=== PATIENT | female | born 1990 | race Two or more races ===

== ENCOUNTER 2016-08-27 05:48 | Inpatient (IN) | payer MEDICAID ==
[~2016-08-27] VITALS: Ht 160 cm; Wt 79.0 kg
--- NOTE | ~2016-08-27 | OR ---
[facility] 26 [address] ROOM: [place] [id number] LOCATION: [facility] ADMIT DATE: 08/27/2016 OR/Procedure Report DISCHARGE DATE: FAMILY PHYSICIAN: PHYSICIAN, NO ATTENDING PHYSICIAN: Les Treviño SURGEON: Les Treviño MD [employer] SANDER: Dr. Trish Sagastume. DATE OF PROCEDURE: 08/27/2016 PREOPERATIVE DIAGNOSIS: Prior section at term. POSTOPERATIVE DIAGNOSIS: Prior section at term. PROCEDURE: Repeat low transverse section. ANESTHESIA: Spinal. ESTIMATED BLOOD LOSS: 600 mL. CLINICAL INDICATION: Romulo Morales is a 26-year-old , female, 2, para 1, at 39 weeks' gestational age. She has had a prior section necessitating a repeat section. She is 39 weeks' gestational age. FINDINGS: Delivery of a viable 10-pound 7-ounce male infant, scores of 8 at one minute and 8 at five minutes. umbilical arterial cord blood gas is pending at the time of the dictation. TECHNIQUE OF PROCEDURE: The patient was taken to the operating room, given spinal anesthesia with good results, placed in a supine position with a right hip roll, prepped and draped in the usual fashion. Pfannenstiel technique prior. Vertical midline skin incision was excised sharply, subcutaneous tissue dissected sharply, and undermined. Vertical midline fascial incision performed. The rectus muscles and peritoneum were incised vertically in the midline. Bladder flap was created. Myometrium incised with a scalpel. Endometrial cavity was entered bluntly. Uterine incision was performed bluntly. At this point in time, there was rapid and easy delivery of a viable 10-pound 7-ounce male in a vertex presentation. The umbilical cord was doubly clamped, the intervening segment was cut, and it was handed off to the awaiting nursing services. umbilical, arterial cord blood, and venous cord blood were obtained for blood gas analysis and routine studies respectively. Placenta delivered spontaneously intact with 3 vessels. Exploration of the uterine cavity noted no residual placental or amniotic membranes. Uterine incision was closed with a running continually locking stitch of 0 chromic suture followed by a second imbricating layer consisting PATIENT'S NAME: ROMULO [facility]NANDEZSUS [facility] AGE: 26 Y [address] ROOM: [place] [id number] LOCATION: [facility] ADMIT DATE: 08/27/2016 OR/Procedure Report DISCHARGE DATE: FAMILY PHYSICIAN: PHYSICIAN, LONI ATTENDING PHYSICIAN: Les Treviño of running continuous stitch of 0 chromic suture. Good hemostasis was obtained. Bladder flap was closed with a running continuous stitch of 2-0 Vicryl suture. Abdomen was inspected. Any blood or blood clots were retrieved. Tubes and ovaries were normal bilaterally. Abdominal peritoneum was closed with a running continuous stitch of 2-0 Vicryl suture. Vaginal incision was closed with a running continuous stitch of 0 Vicryl suture. There was a large amount of redundant vaginal tissue and as such, a second imbricating layer was placed using a running continuous stitch of 0 Vicryl suture. Submucosa was then reapproximated using a series of interrupted stitches of 2-0 Vicryl suture. Skin was closed with running continuous subcuticular stitch of 4-0 Vicryl suture. Sponge, needle, and instrument counts were correct. The patient tolerated the procedure well and was taken to the recovery room in good condition. MD ROCAEL JAUREGUI/modl /[id number] d: 08/27/167 t: 08/31/16 0733, OPERATIVE SUMMARY
[2016-08-27 06:45] LABS: BASOPHIL % 0.3 %; EOSINOPHIL # 0.2 K/uL (0.0-0.5); EOSINOPHIL % 2.6 %; HEMATOCRIT 34.7 % (33.0-46.0); HEMOGLOBIN 12.3 g/dL (11.0-15.0); IMMATURE GRANULOCYTE # 0.1 K/uL (0.0-0.3); IMMATURE GRANULOCYTE % 0.7 %; LYMPHOCYTE % 21.8 %; MCH 32.5 pg (27.0-34.0); MCHC 35.4 gm/dL (32.0-36.5); MCV 91.8 fl (83.0-98.0); MONOCYTE # 0.4 K/uL (0.0-1.0); MONOCYTE % 4.8 %; MPV 10.2 fl (9.4-12.4); NEUTROPHIL # (ANC) 6.5 K/uL (1.8-7.8); NEUTROPHIL % 69.8 %; NRBC % 0.2 /100WBC (0-0.00); PLATELET COUNT 250 K/uL (150-450); RBC 3.78 M/uL (3.50-5.00); RDW-CV 13.2 % (11.9-14.6); WBC 9.2 K/uL (4.0-11.0)
[2016-08-27] MEDS ORDERED: PRENATAL 1+1)(P1 TAB PO (07:18)
[2016-08-27 08:24] LABS: BICARBONATE 28.2 mmol/L (18.0-23.0); PCO2 65 mmHg (35-45); PO2 22 mmHg (80-90)
[2016-08-28 09:07] LABS: BASOPHIL % 0.3 %; EOSINOPHIL # 0.2 K/uL (0.0-0.5); EOSINOPHIL % 1.3 %; HEMATOCRIT 31.2 % (33.0-46.0); HEMOGLOBIN 10.8 g/dL (11.0-15.0); IMMATURE GRANULOCYTE # 0.1 K/uL (0.0-0.3); IMMATURE GRANULOCYTE % 0.4 %; LYMPHOCYTE # 1.3 K/uL (0.8-4.0); LYMPHOCYTE % 10.6 %; MCH 32.5 pg (27.0-34.0); MCHC 34.6 gm/dL (32.0-36.5); MONOCYTE # 0.5 K/uL (0.0-1.0); MONOCYTE % 3.6 %; MPV 9.3 fl (9.4-12.4); NEUTROPHIL # (ANC) 10.6 K/uL (1.8-7.8); NEUTROPHIL % 83.8 %; NRBC % 0 /100WBC (0-0.00); PLATELET COUNT 217 K/uL (150-450); RBC 3.32 M/uL (3.50-5.00); RDW-CV 13.6 % (11.9-14.6); WBC 12.7 K/uL (4.0-11.0)
[2016-08-29] MEDS ORDERED: MOTRIN800 MG PO (12:19)
[2016-08-29] MEDS ORDERED: PERCOCET 5-3251 EACH PO (12:20)
== END 2016-08-29 13:25 | disposition disaster alternative care site (69) | DRG 766 ==
LOC: GOBS 05:48
PROVIDERS: ADMIT Obstetrics & Gynecology
PROC: 10D00Z1 Extraction of Products of Conception, Low, Open Approach (ICD-10-PCS; principal; 2016-08-27)
PROC: 4A1HX4Z Monitoring of Products of Conception, Cardiac Electrical Activity, External Approach (ICD-10-PCS; principal; 2016-08-27)
DX: O34.211 Maternal care for low transverse scar from previous cesarean delivery (principal); N85.8 Other specified noninflammatory disorders of uterus; Z3A.39 39 weeks gestation of pregnancy; Z37.0 Single live birth
CPT/HCPCS: J0295; J1885; J2001; J2590; J3010; J7120